=== PATIENT | female | born 1965 | race Caucasian/White ===

== ENCOUNTER 2017-03-20 15:41 | Emergency (ER) | payer MEDICAID ==
[2017-03-20 15:51] VITALS: TEMP 97.7
[2017-03-20] MEDS ORDERED: NS 500 ML IV ONE (17:07)
--- NOTE | 2017-03-20 17:15 | EDPHY ---
H & P Time Seen by Provider: 03/20/17 16:37 HPI/ROS: HPI Fall down stairs. 52-year-old female by private vehicle with her . This patient reports that she fell down her basement stairs on Monday evening. She impacted her left shoulder, left posterior rib area and flank area. She reports that she had worsening pain to all 3 of these areas today was not able to go to work. She reports the pain is worse with movement and deep breathing. She did hit her head but denies any loss of consciousness. She denies any neck pain or mid back pain. No numbness or weakness in her lower extremities. She has not had any nausea or vomiting. Denies headache. No confusion according to her . She denies any extremity pain other than the left shoulder. She is not on antiplatelet or anticoagulant medications. ROS: Constitutional: No fever, no chills. No weakness. Eyes: No discharge. No changes in vision. ENT: No sore throat. No nasal congestion or rhinorrhea. Respiratory: No cough. No shortness of breath. Cardiac: No chest pain, no palpitations. Gastrointestinal: No abdominal pain, no vomiting, no diarrhea. Genitourinary: No hematuria. No dysuria or increased frequency with urination. Musculoskeletal: No back pain. No neck pain. As above. Skin: No rashes. Neurological: No headache. No focal weakness or altered sensation. Past medical history: Asthma, neck surgery, breast reduction surgery. Social history: Here with her . Nonsmoker. Denies alcohol. Physical Exam: General Appearance: Alert, no distress. This patient is responding to questions appropriately and in full sentences. This patient appears well- hydrated and well-nourished. Head: Normocephalic atraumatic. Face: Facial bones are stable on palpation. Eyes: Pupils equal and round and reactive to light, no pallor or injection. No lid erythema or edema. ENT, Mouth: Mucous membranes moist. Dentition is intact. No malocclusion of the jaw. No tongue lacerations or abrasions. Pharynx is clear. The bilateral nasal canals are clear. No septal hematoma. Respiratory: There are no retractions, lungs are clear to auscultation with good air movement bilaterally. Chest wall is stable to AP and lateral palpation. Cardiovascular: Regular rate and rhythm. No murmur. Gastrointestinal: Abdomen is soft with mild to moderate left-sided subcostal tenderness on palpation. Neurological: Motor sensory function is intact. Cranial nerves are normal. Cerebellar function intact. Skin: Warm and dry, no rashes. No lacerations, no abrasions. She has diffuse ecchymosis over the lateral and posterior aspect of the left shoulder. She has ecchymosis noted over the left posterior rib area caudad to the scapular angle and involving the left flank. She has vague tenderness on palpation to this area. There is no crepitus on palpation. No bony step-off or deformity noted on palpation. The left shoulder joint does range without significant pain or impingement. No gross deformity on inspection of the left shoulder. Musculoskeletal: Neck is supple and nontender. The trachea is midline. No midline cervical, thoracic, lumbar or sacral tenderness on palpation. No flank tenderness on palpation. Extremities are symmetrical, full range of motion. All joints in the bilateral upper and bilateral lower extremities range without pain or impingement. No tenderness on palpation of the long bones in the bilateral upper and bilateral lower extremities. Psychiatric: No agitation. No depression. Database: EKG: Imaging: Chest x-ray AP portable; the cardiac mediastinal silhouette is unremarkable. No evidence of infiltrate or pneumothorax. No evidence of rib fracture. No acute cardiopulmonary disease process noted. Interpreted by me. Left shoulder x-ray series; negative for fracture, subluxation, dislocation.Interpreted by me. CT chest abdomen and pelvis with IV contrast: Significant for nondisplaced rib fractures 5 and 6 left-sided lateral and posterior left-sided 7th rib. Abdomen is unremarkable. The spleen and kidneys appear normal. No free fluid. There is an old compression fracture of L1 that was noted on a prior study. Otherwise this study was normal. Results were discussed with staff radiologist Dr. Ulises Leone. Procedures: Emergency department course: Plain films of the chest and left shoulder ordered from triage. IV placed. She was started on IV normal saline with 500 cc to be given over the next hour. Secondary to the extensive ecchymosis involving the left posterior chest wall as well as left flank area and tenderness over the spleen she will be sent for CT imaging. She consents to this. 7:05 p.m., patient re-evaluated. She has been given 2, 0.25 mg doses of IV hydromorphone for pain control. Her pain is controlled at this time. I discussed the results of her CT scans and diagnosis of rib fractures. I discussed admission for pain control. She does not want to be admitted. Plan will be to discharge her to home with prescriptions for Vicodin and stool softeners. Return to emergency department precautions were thoroughly reviewed with her and her . Both of them feel comfortable with this plan. She can easily return to the emergency department if needed. Follow-up was discussed. All of their questions were answered. She was discharged in good condition. Differential Diagnosis: The differential diagnosis on this patient includes but is not limited to left shoulder contusion, rib fractures, renal contusion versus laceration, splenic laceration. Cervical spine injury, traumatic brain injury unlikely. This represents a partial list of diagnoses considered. These considerations are based on history, physical exam, past history, reassessment and diagnostic testing. Smoking Status: Current every day smoker Constitutional: Initial Vital Signs Temperature (C) 36.5 C 03/20/17 15:48 Heart Rate 84 03/20/17 15:48 Respiratory Rate 18 03/20/17 15:48 Blood Pressure 140/93 H 03/20/17 15:48 O2 Sat (%) 94 03/20/17 15:48 O2 Delivery Mode Room Air Allergies/Adverse Reactions: No Known Allergies Allergy (Verified 03/20/17 15:46) Home Medications: Medication Instructions Recorded Albuterol [Proventil Inhaler HFA 1 - 2 puffs IH Q4 #1 mdi 04/13/16 (*)] Buspar (*) 04/13/16 Flexeril 04/13/16 predniSONE 20 mg PO DAILY #5 tablet 04/13/16 traZODone 04/13/16 Docusate Sodium [Colace 100 MG (*)] 100 mg PO TID #20 cap 03/20/17 Hydrocodone/APAP 5/325 [[place] 1 - 2 tab PO Q4-6PRN PRN #20 tab 03/20/17 5/325 (*)] Medical Decision Making - Data Points Medications Given: Discontinued Medications Hydromorphone HCl (Dilaudid) 0.25 mg IVP EDNOW ONE Stop: 03/20/17 18:35 Last Admin: 03/20/17 18:37 Dose: 0.25 mg Sodium Chloride (Ns) 500 mls @ 0 mls/hr IV ONCE ONE; Wide Open PRN Reason: Protocol Stop: 03/20/17 17:08 Last Admin: 03/20/17 17:33 Dose: 500 mls Departure - Departure Disposition: Home, Routine, Self-Care Clinical Impression: Fall down stairs, Chest wall contusion, Contusion of left shoulder, Rib fractures Condition: Good Instructions: Rib Fracture (ED) Additional Instructions: Read and follow provided instructions. Follow-up with your primary care physician in 1-2 days for re-evaluation. Take medication as prescribed. [place]/Percocet dosin-2 every 4-[address] not drive on this medication. Ibuprofen dosin mg every 6 hours with meals for the next 3 days only. Return to the emergency department immediately for worsening or uncontrolled pain with above medications, difficulty breathing, cough or other serious concerns. Referrals: Roslyn Bradford MD [Primary Care Provider] - As per Instructions Stand Alone Forms: Work Limited Duty, Work Excuse Prescriptions: Docusate Sodium [Colace 100 MG (*)] 100 mg PO TID #20 cap Hydrocodone/APAP 5/325 [[place] 5/325 (*)] 1 - 2 tab PO Q4-6PRN PRN #20 tab PRN Reason: Pain, Moderate
[2017-03-20] MEDS ORDERED: IOPAMIDOL (ISOVUE-300) 100 ML BTL ONE (17:42)
[2017-03-20] MEDS ORDERED: HYDROmorphONE/DILAUDID 1 MG/ML SYR IVP ONE (18:34)
[2017-03-20 19:29] VITALS: BP 137/97; PULSE 88; RESP 16; O2SAT 92
== END 2017-03-20 19:30 | disposition home or self-care (01) ==
DX: S22.32XA Fracture of one rib, left side, initial encounter for closed fracture (principal); S40.012A Contusion of left shoulder, initial encounter; F17.200 Nicotine dependence, unspecified, uncomplicated; J45.909 Unspecified asthma, uncomplicated; E86.9 Volume depletion, unspecified; W10.8XXA Fall (on) (from) other stairs and steps, initial encounter
CPT/HCPCS: 82947-QW; 96374; J1170; Q9967

== ENCOUNTER 2017-03-30 06:49 | Emergency (ER) | payer MEDICAID ==
[2017-03-30 06:59] VITALS: O2SAT 95
[2017-03-30] MEDS ORDERED: LORazepam 1 MG TAB PO ONE (07:17)
--- NOTE | 2017-03-30 07:23 | EDPHY ---
H & P Stated Complaint: FALL DOWN STAIRS YEST 4PM, HALLUCINATING ALL NIGHT,FALL 2 WK AGO Time Seen by Provider: 03/30/17 07:09 HPI/ROS: Chief Complaint: Head injury, hallucination HPI: 52-year-old woman states she fell down the stairs yesterday afternoon for p.m.. She states she struck her head and had a positive loss of consciousness. She states these are 3 stairs and fell down about 6 of them outside. Had a similar fall 2 weeks ago. Last night after going to bed she was hallucinating, while in bed she thought she saw someone coming in and out of her closet. She did hear voices once when somebody called out her name. She lives with her fiance who did not observe a unusual people or your usual things at home. Does not have a history of hallucinations in the past. Does not have a headache. Some nausea but no vomiting. She is also feeling very tremulous and shaky in her arms and her legs bilaterally. Denies alcohol consumption for at least a couple of months. Does smoke cigarettes. Denies any other drug use. Takes trazodone for sleep but has never had a similar episode after taking trazodone in the past. No neck pain. No numbness or weakness. ROS: 10 point Review of Systems is negative except as noted in the HPI. PMH: Denies Social History: Positive smoking, denies alcohol, no recreational drug use Family History: non-contributory Physical Exam: Gen: Awake, Alert, No Distress, tremulous HEENT: Mild right parietal scalp tenderness with small hematoma, no lacerations or abrasions. No step-offs. Nose: no rhinorrhea Eyes: PERRLA, EOMI Mouth: Moist mucosa Neck: Supple, no JVD, nontender Chest: nontender, lungs clear to auscultation Heart: S1, S2 normal, no murmur Abd: Soft, non-tender, no guarding Back: no CVA tenderness, no midline tenderness Ext: no edema, non-tender Skin: no rash Neuro: CN II-XII intact, Sensation grossly intact, Strength 5/5 in bilateral upper and lower extremities - Personal History LMP (Females 10-55): Post Menopausal Current Tetanus/Diphtheria Vaccine: Yes - Medical/Surgical History Hx Asthma: Yes Hx Chronic Respiratory Disease: No Hx Diabetes: No Hx Cardiac Disease: No Hx Renal Disease: No Hx Cirrhosis: No Hx Alcoholism: No Hx HIV/AIDS: No Hx Splenectomy or Spleen Trauma: No Other PMH: PMH- ASTHMA, ARTHRITIS, ANXIETY. PSH- NECK/B KNEES, BREAST reduction , FOOT SURG, - Social History Smoking Status: Current every day smoker Constitutional: Initial Vital Signs Temperature (C) 36.5 C 03/30/17 06:55 Heart Rate 108 H 03/30/17 06:55 Respiratory Rate 20 03/30/17 06:55 Blood Pressure 139/99 H 03/30/17 06:55 O2 Sat (%) 95 03/30/17 06:55 O2 Delivery Mode Room Air Allergies/Adverse Reactions: No Known Allergies Allergy (Verified 03/20/17 15:46) Home Medications: Medication Instructions Recorded Albuterol [Proventil Inhaler HFA 1 - 2 puffs IH Q4 #1 mdi 04/13/16 (*)] Buspar (*) 04/13/16 Flexeril 04/13/16 traZODone 04/13/16 Wellbutrin Sr 03/30/17 Medical Decision Making - Diagnostics Imaging Results: Imaging Impressions Head CT 03/30/17 07:17 Impression: Negative. No acute fracture or evidence of acute intracranial injury. The study was performed as an emergency on-call case and discussed by telephone with Dr. Hudson at 7:45 a.m. The final interpretation is concordant with the original communication. Imaging: Discussed imaging studies w/ shift supervisor melting Radiologist ED Course/Re-evaluation: CT scan of the head is negative for acute injury. Patient is feeling improved after mg of Ativan. She has not had any further hallucinations other than last night while in bed. Remainder exam is unremarkable. I do not think that these are head injury related. Her symptoms are consistent with alcohol withdrawal however she is adamantly denying any alcohol use. She could be having some symptoms secondary to her trazodone. She has follow up with [facility]. Will discharge her with instructions to follow up for any concerns. She will return for any worsening symptoms. - Data Points Medications Given: Discontinued Medications Lorazepam (Ativan) 1 mg PO EDNOW ONE Stop: 03/30/17 07:18 Last Admin: 03/30/17 07:36 Dose: 1 mg Departure - Departure Disposition: Home, Routine, Self-Care Clinical Impression: Head injury Condition: Good Instructions: Head Injury (ED) Additional Instructions: Follow up with your doctors at the [facility] in 2-3 days for re- evaluation. Return to the emergency depart for increasing headache, nausea, vomiting, worsening shaking, worsening hallucinations, seizures, or any other concerns. Referrals: [facility] [Other] - As per Instructions
[2017-03-30 08:39] VITALS: BP 121/91; PULSE 96; RESP 18; TEMP 97.9
== END 2017-03-30 08:40 | disposition home or self-care (01) ==
DX: S09.90XA Unspecified injury of head, initial encounter (principal); J45.909 Unspecified asthma, uncomplicated; W10.8XXA Fall (on) (from) other stairs and steps, initial encounter; F17.200 Nicotine dependence, unspecified, uncomplicated

== ENCOUNTER 2017-03-30 13:27 | Emergency (ER) | payer MEDICAID ==
[2017-03-30 13:42] VITALS: RESP 18; TEMP 98.4
[2017-03-30 13:57] LABS: % IMMATURE GRANULYOCYTES 0.5 % (0.0-1.1); ABSOLUTE IMMATURE GRANULOCYTES 0.06 10^3/uL (0.00-0.10); ADD DIFF? NO; ADD MORPH? NO; ADD SCAN? NO; ATYPICAL LYMPHOCYTE FLAG 0 (0-99); FRAGMENT RBC FLAG 0 (0-99); HEMATOCRIT 49.3 % (38.0-47.0); HEMOGLOBIN 17.2 g/dL (12.6-16.3); LEFT SHIFT FLG 0 (0-99); LIPEMIA HEMOLYSIS FLAG 90 (0-99); MEAN CELL HEMOGLOBIN 35.5 pg (27.9-34.1); MEAN CELL HEMOGLOBIN CONCENTR. 34.9 g/dL (32.4-36.7); MEAN CELL VOLUME 101.9 fL (81.5-99.8); MEAN PLATELET VOLUME 10.2 fL (8.7-11.7); PLATELET CLUMPS FLAG 0 (0-99); PLATELET COUNT 243 10^3/uL (150-400); RED BLOOD CELL COUNT 4.84 10^6/uL (4.18-5.33); RED CELL DISTRIBUTION WIDTH 13.1 % (11.5-15.2)
[2017-03-30 14:03] LABS: ANION GAP 19 mEq/L (8-16); CALCIUM 10.8 mg/dL (8.5-10.4); CARBON DIOXIDE 17 mEq/l (22-31); CHLORIDE 101 mEq/L (97-110); ETHANOL SERUM 208 mg/dL (0-10); GLOMERULAR FILTRATION RATE 58; GLUCOSE 85 mg/dL (70-100); POTASSIUM 4.1 mEq/L (3.5-5.2); SODIUM 137 mEq/L (134-144)
[2017-03-30] MEDS ORDERED: LORazepam 2 MG/ML INJ IVP ONE (14:04)
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
[2017-03-30] MEDS ORDERED: CHLORDIAZEPOXIDE 25MG PREPK#6 BTL TAKEHOME ONE (16:40)
[2017-03-30 16:46] VITALS: BP 147/111; PULSE 107; O2SAT 96
--- NOTE | 2017-03-30 16:55 | ASMTCMCOM ---
CM Note CM Note Notes: Case Management: Patient discharged "to the care of a responsible, sober adult" or to the [facility]. Patient confused, unable to identify a designated sober person to discharge with. Staes she does not "want" to go ro the [facility]. [place] [employer] called and will provide a ride/escort to the [facility] Date Signed: 03/30/2017 04:55 PM Electronically Signed By:Carrie Tavarez
== END 2017-03-30 17:26 | disposition home or self-care (01) ==
LOC: EDUNIT#
DX: F10.129 Alcohol abuse with intoxication, unspecified (principal); F17.200 Nicotine dependence, unspecified, uncomplicated; J45.909 Unspecified asthma, uncomplicated
CPT/HCPCS: 80305; G0480; J2060

== ENCOUNTER 2017-06-28 13:33 | Emergency (ER) | payer MEDICAID ==
[2017-06-28] MEDS ORDERED: NS 1,000 ML IV ONE (15:47)
[2017-06-28] MEDS ORDERED: DIAZEPAM 10 MG/2 ML SYR IVP ONE (15:48)
[2017-06-28 16:00] LABS: % IMMATURE GRANULYOCYTES 0.4 % (0.0-1.1); ABSOLUTE IMMATURE GRANULOCYTES 0.03 10^3/uL (0.00-0.10); ADD DIFF? NO; ADD MORPH? NO; ADD SCAN? NO; ATYPICAL LYMPHOCYTE FLAG 0 (0-99); FRAGMENT RBC FLAG 0 (0-99); HEMATOCRIT 48.3 % (38.0-47.0); HEMOGLOBIN 17.4 g/dL (12.6-16.3); LEFT SHIFT FLG 0 (0-99); LIPEMIA HEMOLYSIS FLAG 90 (0-99); MEAN CELL HEMOGLOBIN 34.7 pg (27.9-34.1); MEAN CELL VOLUME 96.2 fL (81.5-99.8); MEAN PLATELET VOLUME 11.7 fL (8.7-11.7); PLATELET CLUMPS FLAG 10 (0-99); PLATELET COUNT 68 10^3/uL (150-400); RED BLOOD CELL COUNT 5.02 10^6/uL (4.18-5.33); RED CELL DISTRIBUTION WIDTH 14.4 % (11.5-15.2)
[2017-06-28 16:02] LABS: ANION GAP 16 mEq/L (8-16); CALCIUM 11.5 mg/dL (8.5-10.4); CARBON DIOXIDE 26 mEq/l (22-31); CHLORIDE 92 mEq/L (97-110); CREATININE 0.8 mg/dL (0.6-1.0); ETHANOL SERUM < 10 mg/dL (0-10); GLOMERULAR FILTRATION RATE > 60; GLUCOSE 115 mg/dL (70-100); POTASSIUM 3.5 mEq/L (3.5-5.2); SODIUM 134 mEq/L (134-144)
--- NOTE | 2017-06-28 16:04 | EDPHY ---
H & P Time Seen by Provider: 06/28/17 15:10 HPI/ROS: HPI Anxiety, shaking. 52-year-old female by ambulance from home. This patient has a history of alcohol abuse. She has been seen in our emergency department in the past for similar complaints. She reports that she drinks wine on a daily basis. She reports to me that her last drink was several days ago now. She comes to the emergency department complaining of generalized malaise, anxiety and tremors. She reports that she has had some depression but she denies suicidal ideation. She reports also that prior to coming to the emergency department she was so anxious and tremulous that she was not able to walk. That is why she called the ambulance. This is similar to her previous visits in late February of this year. She is feeling better at this time. ROS: Constitutional: No fever, no chills. As above. Eyes: No discharge. No changes in vision. ENT: No sore throat. No nasal congestion or rhinorrhea. Respiratory: No cough. No shortness of breath. Cardiac: No chest pain, no palpitations. Gastrointestinal: No abdominal pain, no vomiting, no diarrhea. Genitourinary: No hematuria. No dysuria or increased frequency with urination. Musculoskeletal: No back pain. No neck pain. No myalgias or arthralgias. Skin: No rashes. Neurological: No headache. No focal weakness or altered sensation. As above. Past medical history: Asthma, arthritis, anxiety, alcohol abuse, breast reduction and various orthopedic surgeries. Social history: Denies smoking. . As above. Denies IV drugs or street drugs. Physical Exam: General Appearance: Alert, anxious. This patient is responding to questions appropriately and in full sentences. This patient appears well-hydrated and well-nourished. Eyes: Pupils equal and round no pallor or injection. No lid edema, erythema or injection. Head: Normocephalic atraumatic. Respiratory: There are no retractions, lungs are clear to auscultation with good air movement bilaterally. Cardiovascular: Regular rate and rhythm. No murmur. Gastrointestinal: Abdomen is soft and nontender, no masses, bowel sounds normal. No focal tenderness at McBurney's point. No Chinchilla sign. Neurological: Motor sensory function is grossly intact. Cranial nerves are normal. Gait is normal. Mild resting tremor. Skin: Warm and dry, no rashes. Musculoskeletal: Neck is supple and nontender. No pain on flexion of the neck. No midline cervical, thoracic, lumbar tenderness on palpation. Extremities are symmetrical. All joints range without pain or impingement. Psychiatric: No agitation. No depression. Database: EKG: Imaging: Procedures: Emergency department course: IV was placed. Vital signs reviewed and are normal. She will be given 5 mg of IV Valium for mild withdrawal and anxiety, this will be repeated as needed x1. Her presentation is not consistent with delirium tremens. I do not feel at this time that she needs inpatient treatment for alcohol withdrawal. She is not suicidal. 4:40 p.m., patient re-evaluated. Resting comfortably. Feeling better after Valium as noted above. Laboratory/blood work reviewed with her. Diagnosis of urinary tract infection discussed with her. Her medication allergies reviewed. She was started on Keflex 500 mg in the emergency department for treatment of urinary tract infection. She feels comfortable going home. I feel she is safe for discharge. I discussed detox programs at [facility]. I will give her information to contact [facility]. Return to emergency department precautions reviewed. Follow-up discussed. All of her questions were answered. She was discharged in good condition. Differential Diagnosis: The differential diagnosis on this patient includes but is not limited to anxiety reaction, alcohol withdrawal, urinary tract infection. Suicidal ideation, acute psychosis, delirium tremens unlikely. This represents a partial list of diagnoses considered. These considerations are based on history , physical exam, past history, reassessment and diagnostic testing. Smoking Status: Current every day smoker Constitutional: Initial Vital Signs Temperature (C) 36.7 C 06/28/17 13:42 Heart Rate 88 06/28/17 13:42 Respiratory Rate 18 06/28/17 13:42 Blood Pressure 122/89 H 06/28/17 13:42 O2 Sat (%) 94 06/28/17 13:42 O2 Delivery Mode Room Air Allergies/Adverse Reactions: No Known Allergies Allergy (Verified 06/28/17 13:41) Home Medications: Medication Instructions Recorded Albuterol [Proventil Inhaler HFA 1 - 2 puffs IH Q4 #1 mdi 04/13/16 (*)] Buspar (*) 04/13/16 Flexeril 04/13/16 traZODone 04/13/16 Wellbutrin Sr 03/30/17 Cephalexin [Keflex (*)] 500 mg PO Q6 7 Days cap 06/28/17 Medical Decision Making - Data Points Laboratory Results: Laboratory Results 06/28/17 13:40 06/28/17 13:40 06/28/17 06/28/17 06/28/17 13:40 13:40 13:40 WBC 7.46 10^3/uL 10^3/uL (3.80-9.50) RBC 5.02 10^6/uL 10^6/uL (4.18-5.33) Hgb 17.4 g/dL H g/dL (12.6-16.3) Hct 48.3 % H % (38.0-47.0) MCV 96.2 fL fL (81.5-99.8) MCH 34.7 pg H pg (27.9-34.1) MCHC 36.0 g/dL g/dL (32.4-36.7) RDW 14.4 % % (11.5-15.2) Plt Count 68 10^3/uL L 10^3/uL (150-400) MPV 11.7 fL fL (8.7-11.7) Neut % (Auto) 52.1 % % (39.3-74.2) Lymph % (Auto) 37.7 % % (15.0-45.0) [place] % (Auto) 8.4 % % (4.5-13.0) Eos % (Auto) 0.7 % % (0.6-7.6) Baso % (Auto) 0.7 % % (0.3-1.7) Nucleat RBC Rel Count 0.0 % % (0.0-0.2) Absolute Neuts (auto) 3.89 10^3/uL 10^3/uL (1.70-6.50) Absolute Lymphs (auto) 2.81 10^3/uL 10^3/uL (1.00-3.00) Absolute Monos (auto) 0.63 10^3/uL 10^3/uL (0.30-0.80) Absolute Eos (auto) 0.05 10^3/uL 10^3/uL (0.03-0.40) Absolute Basos (auto) 0.05 10^3/uL 10^3/uL (0.02-0.10) Absolute Nucleated RBC 0.00 10^3/uL 10^3/uL (0-0.01) Immature Gran % 0.4 % % (0.0-1.1) Immature Gran # 0.03 10^3/uL 10^3/uL (0.00-0.10) Sodium 134 mEq/L mEq/L (134-144) Potassium 3.5 mEq/L mEq/L (3.5-5.2) Chloride 92 mEq/L L mEq/L (97-110) Carbon Dioxide 26 mEq/l mEq/l (22-31) Anion Gap 16 mEq/L mEq/L (8-16) BUN 20 mg/dL mg/dL (7-23) Creatinine 0.8 mg/dL mg/dL (0.6-1.0) Estimated GFR > 60 Glucose 115 mg/dL H mg/dL (70-100) Calcium 11.5 mg/dL H mg/dL (8.5-10.4) Phosphorus 3.7 mg/dL mg/dL (2.5-4.5) Urine Color JULIO Urine Appearance HAZY Urine pH 5.0 (5.0-7.5) Ur Specific [place] 1.026 (1.002-1.030) Urine Protein 1+ H (NEGATIVE) Urine Ketones NEGATIVE (NEGATIVE) Urine Blood NEGATIVE (NEGATIVE) Urine Nitrate NEGATIVE (NEGATIVE) Urine Bilirubin NEGATIVE (NEGATIVE) Urine Urobilinogen 2.0 EU H EU (0.2-1.0) Ur Leukocyte Esterase 1+ H (NEGATIVE) Urine RBC 10-15 /hpf H /hpf (0-3) Urine WBC 15-25 /hpf H /hpf (0-3) Ur Epithelial Cells 2+ /lpf H /lpf (NONE-1+) Uric Acid Crystals PRESENT /hpf /hpf (NONE-1+) Hyaline Casts 5-15 /lpf /lpf (0-1) Urine Mucus 4+ /lpf H /lpf (NONE-1+) Urine Glucose NEGATIVE (NEGATIVE) Ethyl Alcohol < 10 mg/dL mg/dL (0-10) Medications Given: Discontinued Medications Diazepam (Valium Injection) 5 mg IVP EDNOW ONE Stop: 06/28/17 15:49 Last Admin: 06/28/17 15:57 Dose: 5 mg Sodium Chloride (Ns) 1,000 mls @ 0 mls/hr IV ONCE ONE; Wide Open PRN Reason: Protocol Stop: 06/28/17 15:48 Last Admin: 06/28/17 15:57 Dose: 1,000 mls Departure - Departure Disposition: Home, Routine, Self-Care Clinical Impression: Anxiety reaction, Alcohol withdrawal, Urinary tract infection Condition: Good Instructions: Alcohol Withdrawal (ED), Anxiety (ED), Urinary Tract Infection in Women (ED) Additional Instructions: Read and follow provided instructions. Follow-up with your primary care physician in 1-2 days for re-evaluation concerning for urinary tract infection and [facility] for re-evaluation and to discuss detox program options. Take your medication only as prescribed. Take antibiotics as prescribed through entire course of treatment. Return to the emergency department for worsening symptoms, fever, back pain, vomiting or other serious concerns. Referrals: NONE *PRIMARY CARE P,. [Primary Care Provider] - As per Instructions [facility] ([place],. [Clinic] - As per Instructions Prescriptions: Cephalexin [Keflex (*)] 500 mg PO Q6 7 Days cap
[2017-06-28 16:11] LABS: COLOR AMBER; LEUKOCYTE ESTERASE,URINE 1+ (NEGATIVE); MUCUS 4+ /lpf (NONE-1+); NITRITE,URINE NEGATIVE (NEGATIVE); WBC,URINE 15-25 /hpf (0-3)
[2017-06-28 16:23] VITALS: RESP 18; O2SAT 94
[2017-06-28 16:57] VITALS: BP 139/94; PULSE 83; TEMP 98.2
== END 2017-06-28 16:57 | disposition home or self-care (01) ==
LOC: EDUNIT#
DX: F41.1 Generalized anxiety disorder (principal); F10.239 Alcohol dependence with withdrawal, unspecified; N39.0 Urinary tract infection, site not specified; J45.909 Unspecified asthma, uncomplicated; F17.200 Nicotine dependence, unspecified, uncomplicated; E86.9 Volume depletion, unspecified
CPT/HCPCS: 96374; G0480

== ENCOUNTER 2017-06-28 17:45 | Emergency (ER) | payer MEDICAID ==
--- NOTE | 2017-06-28 19:12 | EDPHY ---
H & P Time Seen by Provider: 06/28/17 19:02 HPI/ROS: CHIEF COMPLAINT: "I hit my head 6 weeks ago " HISTORY OF PRESENT ILLNESS: 52-year-old female seen emergency department earlier for complaints of acute anxiety. She has a history of alcoholism. States that she hit her head 6 weeks ago and ever since has been feeling "off " . No seizure. No suicidal homicidal ideation. Emergency department earlier patient was discharged however never left the hospital grounds, had spat past few hours in the waiting room and then was found sleeping in the atrium of the hospital where she stated that she hit her head 6 weeks ago. She denies acute complaints of pain or discomfort at this time. Denies seizure. Denies headache. Denies acute head injury. PRIMARY CARE PROVIDER: REVIEW OF SYSTEMS: A ten point review of systems was performed and is negative with the exception of the items mentioned in the HPI PAST MEDICAL/SURGICAL HISTORY: no anticoagulant use, alcoholism SOCIAL HISTORY last drink of alcohol several days ago PHYSICAL EXAM 1) GENERAL: Well-developed, well-nourished, alert and oriented. Appears to be in no acute distress. Answering questions appropriately. Tremulous. GCS 15 2) HEAD: Normocephalic, atraumatic, no hematoma no depression no laceration or abrasion 3) HEENT: Pupils equal, round, reactive to light bilaterally. Negative Horners. Nasopharynx, oropharynx, clear. No deformity or angulation of nose. No septal hematoma. No rhinorrhea. No oral trauma. Ears bilaterally with normal tympanic membranes. No hemotympanum. No fluid or blood in the external auditory canal. No raccoon eyes. No Galvan sign. Teeth are normally aligned with no gross malocclusion, TMJ bilaterally nontender, facial bones nontender including the zygomatic arch, maxilla mandible. 4) NECK: No cervical collar is on. Posterior cervical spine is nontender, no stepoff, no effusion. Full range of motion which does not elicit any midline cervical spine pain, no posterior midline tenderness, no step-off. 5) LUNGS: Clear to auscultation bilaterally, no wheezes, no rhonchi, no retractions. No obvious signs of trauma. No chest wall pain. No flaring, no grunting. Moving symmetrically. No crepitus. 6) HEART: Regular rate and rhythm, 7) ABDOMEN: No guarding, no rebound, no focal tenderness, no peritoneal signs, no signs of trauma, no ecchymosis 8) MUSCULOSKELETAL: Moving all extremities, no focal areas of tenderness, no obvious trauma. 9) BACK: No midline vertebral tenderness, no fluctuance, no step-off, no obvious trauma, no visual or palpable abnormality. 10) SKIN: No laceration. No abrasion 11) NEURO: Awake, alert, and oriented to person, place and time. Answers questions appropriately. There were no obvious focal neurologic abnormalities. No cerebellar dysfunction. Normal steady gait. Upper and lower extremities bilaterally with strength 5 / 5, reflexes 2+. DIFFERENTIAL DIAGNOSIS: [ in no particular include but limited to acute alcohol withdrawal, delirium tremens, suicidal ideation, acute anxiety Smoking Status: Current every day smoker Constitutional: Initial Vital Signs Temperature (C) 36.9 C 06/28/17 18:14 Heart Rate 84 06/28/17 18:14 Respiratory Rate 18 06/28/17 18:14 Blood Pressure 114/85 H 06/28/17 18:14 O2 Sat (%) 94 06/28/17 18:14 O2 Delivery Mode Room Air Allergies/Adverse Reactions: No Known Allergies Allergy (Verified 06/28/17 18:11) Home Medications: Medication Instructions Recorded Albuterol [Proventil Inhaler HFA 1 - 2 puffs IH Q4 #1 mdi 04/13/16 (*)] Buspar (*) 04/13/16 Flexeril 04/13/16 traZODone 04/13/16 Wellbutrin Sr 03/30/17 Cephalexin [Keflex (*)] 500 mg PO Q6 7 Days cap 06/28/17 MDM/Departure - [facility] ED Course/Re-evaluation: 7:10 p.m.: I reviewed this patient's medical records. She denies acute head injury and shows no signs of acute trauma or head trauma. I do not think that diagnostic studies are indicated at this time. I have offered to give her another dose of benzodiazepine which she declines. She does request a taxi ride back to her [facility] house which will be arranged via the charge nurse. She feels comfortable being discharged.Care of patient under supervision of secondary supervising physician Dr Andrea with whom I discussed case . - Depart Disposition: Home, Routine, Self-Care Clinical Impression: Anxiety Condition: Good Instructions: Anxiety (ED) Additional Instructions: Return to the ER if you develop hallucination , seizures, headaches or any other symptoms that concern you Referrals: [facility],. [Clinic] - 1-2 days without fail
[2017-06-28 19:40] VITALS: BP 126/87; PULSE 82; RESP 16; TEMP 98.6; O2SAT 93
== END 2017-06-28 19:39 | disposition home or self-care (01) ==
DX: F41.9 Anxiety disorder, unspecified (principal); F17.200 Nicotine dependence, unspecified, uncomplicated

== ENCOUNTER 2017-07-17 17:00 | Emergency (ER) | payer MEDICAID ==
--- NOTE | 2017-07-17 16:51 | EDPHY ---
H & P Constitutional: Initial Vital Signs Temperature (C) 36.5 C 07/17/17 17:01 Heart Rate 97 07/17/17 17:01 Respiratory Rate 14 07/17/17 17:01 Blood Pressure 151/87 H 07/17/17 17:01 O2 Sat (%) 94 07/17/17 17:01 O2 Delivery Mode Room Air Allergies/Adverse Reactions: No Known Allergies Allergy (Verified 06/28/17 18:11) Home Medications: Medication Instructions Recorded Albuterol [Proventil Inhaler HFA 1 - 2 puffs IH Q4 #1 mdi 04/13/16 (*)] Buspar (*) 04/13/16 Flexeril 04/13/16 traZODone 04/13/16 Wellbutrin Sr 03/30/17 Cephalexin [Keflex (*)] 500 mg PO Q6 7 Days cap 06/28/17 Medical Decision Making ED Course/Re-evaluation: CHIEF COMPLAINT: Alcohol intoxication. HISTORY OF PRESENT ILLNESS: The patient is a 52 y/o female with a history of alcohol abuse who presents with intoxication. EMS reports she was able to walk on scene with some assistance. She denies any complaints currently. She states, "I'm an alcoholic and I have some issues." She admits to drinking 1/2 pint of vodka today and says her parents recently. Patient was found by bystanders at a coffee shop who called EMS. Patient has had multiple ER visits over the last several years for the same complaint. Patient denies any injuries denies loss of consciousness denies any recent trauma. Patient denies co-ingestion. Patient denies suicidal or homicidal behavior. Normal prehospital BGL. REVIEW OF SYSTEMS: A 10 point review of systems was performed and is negative with the exception of the elements mentioned in the history of present illness. PHYSICAL EXAM: General Appearance: Alert, well hydrated, appropriate, and non-toxic appearing. Smells of alcohol. Head: Atraumatic without scalp tenderness or obvious injury Eyes: Pupils equal, round, reactive to light and accommodation, EOMI, no trauma , no injection. Nose: Atraumatic, no rhinorrhea, clear. Throat: Mucus membranes moist. Neck: Supple, nontender. Respiratory: No retractions, no distress, no wheezes, and no accessory muscle use. Lungs are clear to auscultation bilaterally. Cardiovascular: Regular rate and rhythm, no murmurs, rubs, or gallops. Good capillary refill all extremities. Gastrointestinal: Abdomen is soft, nontender, non-distended, no masses, no rebound, no guarding, no peritoneal signs. Musculoskeletal: Normal active ROM of all extremities, atraumatic. Neurological: Alert, appropriate, and interactive. The patient has non-focal cranial nerves, motor, sensory, and cerebellar exam. Skin: No rashes, good turgor, no nodules on palpation. PAST MEDICAL HISTORY: Alcoholism PAST SURGICAL HISTORY: Noncontributory SOCIAL HISTORY: Transient. . DIFFERENTIAL DIAGNOSIS: The differential diagnosis for the patient's symptoms included but was not limited to alcohol intoxication, hypoglycemia, infectious process, electrolyte abnormality, head injury, neurologic process, anemia, cardiac process, and intoxicants. MEDICAL DECISION MAKING: I serially examined this patient since the patient's arrival here in the emergency department. The patient continues to become more and more sober with each examination. I serially questioned the patient and the patient's story given initially has not changed. The patient still denies any trauma, any head injury, and any illicit drug use. At this point, the patient is walking the department freely and is clinically sober. We're discharging the patient to the [facility] in stable condition. Departure - Departure Instructions: Alcohol Intoxication (ED), Abuse of Alcohol (ED) Additional Instructions: Medically clear for detox. Avoid abuse of alcohol. Follow up with [facility] to establish primary care. Referrals: [facility] Detox 24 Hours [Outside] - As per Instructions [facility] [Outside] - As per Instructions Report Scribed for: Rashi Peng Report Scribed by: Arely Farr Date of Report: 07/17/17 Time of Report: 17:06
[2017-07-17 17:07] VITALS: BP 151/87; PULSE 97; RESP 14; TEMP 97.7; O2SAT 94
== END 2017-07-17 18:17 | disposition home or self-care (01) ==
LOC: EDUNIT#
DX: F10.129 Alcohol abuse with intoxication, unspecified (principal)

== ENCOUNTER 2018-01-29 04:08 | Emergency (ER) | payer MEDICAID ==
[2018-01-29] MEDS ORDERED: LORazepam 2 MG/ML INJ IVP ONE (04:10)
[2018-01-29] MEDS ORDERED: chlordiazePOXIDE 25 MG CAP PO ONE (04:10)
[2018-01-29] MEDS ORDERED: NS 1,000 ML IV ONE (04:10)
[2018-01-29] MEDS ORDERED: CHLORDIAZEPOXIDE 25MG PREPK#6 BTL TAKEHOME ONE (04:10)
--- NOTE | 2018-01-29 04:13 | EDPHY ---
H & P Time Seen by Provider: 01/29/18 04:11 HPI/ROS: HPI CHIEF COMPLAINT: Alcohol withdrawal HISTORY OF PRESENT ILLNESS: 52-year-old female, history of alcoholism, she believes her last drink was sometime earlier yesterday, she has been at the [facility] undergoing detox. She did not have Librium there was sent to the emergency room to be treated for alcohol withdrawal. She presents emergency room by EMS this slightly tachycardic at 103 she is tremulous. She is not hallucinating she denies chest pain or shortness of breath. She does complain that she feels like she is going to withdrawal. She typically drinks multiple vodka drinks per day. Past Medical History: Alcoholism Past Surgical History: Recent left rotator cuff surgery Social History: Daily alcohol use, lives locally private residence. Family History: Noncontributory ROS REVIEW OF SYSTEMS: A comprehensive 10 point review of systems is otherwise negative aside from elements mentioned in the history of present illness. Exam Constitutional nontoxic appearing however going through withdrawal triage nursing summary reviewed, vital signs reviewed, awake/alert. Eyes normal conjunctivae and sclera, EOMI, PERRLA. HENT tongue fasciculations on exam, normal inspection, atraumatic, moist mucus membranes, no epistaxis, neck supple/ no meningismus, no raccoon eyes. Respiratory clear to auscultation bilaterally, normal breath sounds, no respiratory distress, no wheezing. Cardiovascular rate normal, regular rhythm, no murmur, no edema, distal pulses normal. Gastrointestinal soft, non-tender, no rebound, no guarding, normal bowel sounds, no distension, no pulsatile mass. Genitourinary no CVA tenderness. Musculoskeletal with arm extension she is tremulous no midline vertebral tenderness, full range of motion, no calf swelling, no tenderness of extremities, no meningismus, good pulses, neurovascularly intact. Skin pink, warm, & dry, no rash, skin atraumatic. Neurologic not hallucinating, nontoxic, awake, alert and oriented x 3, AAOx3, moves all 4 extremities equally, motor intact, sensory intact, CN II-XII intact , normal cerebellar, normal vision, normal speech. Psychiatric normal mood/affect. Heme/Lymph/Immune no lymphadenopathy. Differential Diagnosis: Includes but is not limited to in a particular order alcohol withdrawal, dehydration, anxiety, delirium tremens Medical Decision Making: Plan for this patient IV establishment IV fluid bolus 1 L normal saline, IV Ativan 1 mg for withdrawal and p.o. Librium 50 mg. Re- evaluate. Re-evaluation: 0446: Re-examination this time patient is feeling much better after IV Ativan 1 mg, she is completing a 1 L normal saline IV fluid bolus. On re-evaluation her shaking his resolved and she is feeling much better she in fact was sleeping in the emergency room. No nausea denies any chest pain shortness of breath. Plan will be back to the [facility] with Librium. No evidence of DTs. Source: Patient, EMS - Medical/Surgical History Hx Asthma: Yes Hx Chronic Respiratory Disease: No Hx Diabetes: No Hx Cardiac Disease: No Hx Renal Disease: No Hx Cirrhosis: No Hx Alcoholism: Yes Hx HIV/AIDS: No Hx Splenectomy or Spleen Trauma: No Other PMH: PMH- ASTHMA. PSH- NECK/B KNEES, BREAST reduction - Social History Smoking Status: Current every day smoker Constitutional: Initial Vital Signs Temperature (C) 37.0 C 01/29/18 04:09 Heart Rate 101 H 01/29/18 04:09 Respiratory Rate 18 01/29/18 04:09 Blood Pressure 126/101 H 01/29/18 04:09 O2 Sat (%) 93 01/29/18 04:09 O2 Delivery Mode Room Air Allergies/Adverse Reactions: No Known Allergies Allergy (Verified 06/28/17 18:11) Home Medications: Medication Instructions Recorded Albuterol [Proventil Inhaler HFA 1 - 2 puffs IH Q4 #1 mdi 04/13/16 (*)] Buspar (*) 04/13/16 Flexeril 04/13/16 traZODone 04/13/16 Advair Hfa 115-21 Mcg Inhaler 01/29/18 Ibuprofen 01/29/18 Medical Decision Making - Data Points Medications Given: Discontinued Medications Chlordiazepoxide HCl (Librium) 50 mg PO EDNOW ONE Stop: 01/29/18 04:11 Last Admin: 01/29/18 04:16 Dose: 50 mg Sodium Chloride (Ns) 1,000 mls @ 0 mls/hr IV ONCE ONE PRN Reason: Wide Open Stop: 01/29/18 04:11 Last Admin: 01/29/18 04:18 Dose: 1,000 mls Lorazepam (Ativan Injection) 1 mg IVP EDNOW ONE Stop: 01/29/18 04:11 Last Admin: 01/29/18 04:18 Dose: 1 mg Departure - Departure Disposition: Home, Routine, Self-Care Clinical Impression: Alcohol withdrawal Qualifiers: Complication of substance-induced condition: uncomplicated Qualified Code(s): F10.230 - Alcohol dependence with withdrawal, uncomplicated Condition: Good Instructions: Chlordiazepoxide/Clidinium (By mouth), Alcohol Withdrawal (ED) Referrals: NONE *PRIMARY CARE P,. [Primary Care Provider] - As per Instructions Jaison Allen DO [Doctor of Osteopathy] - As per Instructions
[2018-01-29 05:30] VITALS: BP 131/83
== END 2018-01-29 05:30 | disposition home or self-care (01) ==
LOC: EDUNIT#
DX: F10.230 Alcohol dependence with withdrawal, uncomplicated (principal); J45.909 Unspecified asthma, uncomplicated; F17.200 Nicotine dependence, unspecified, uncomplicated
CPT/HCPCS: 96374; J2060

== ENCOUNTER 2018-04-21 02:48 | Emergency (ER) | payer MEDICAID ==
[2018-04-21] MEDS ORDERED: LORazepam 2 MG/ML INJ ONE (02:59)
[2018-04-21] MEDS ORDERED: IPRATROPIUM/ALBUTEROL 3 ML DEYVIAL ONE (02:59)
[2018-04-21] MEDS ORDERED: methylPREDNISolone SOD SUCC 125 MG/2 ML VIAL ONE (02:59)
[2018-04-21] MEDS ORDERED: LORazepam 2 MG/ML INJ IVP ONE (03:10)
[2018-04-21] MEDS ORDERED: methylPREDNISolone SOD SUCC 125 MG/2 ML VIAL IVP ONE (03:10)
[2018-04-21] MEDS ORDERED: IPRATROPIUM/ALBUTEROL 3 ML DEYVIAL IH ONE (03:10)
[2018-04-21] MEDS ORDERED: NS 1,000 ML IV ONE (03:12)
[2018-04-21] MEDS ORDERED: LORazepam 2 MG/ML INJ IVP PRN (03:24)
[2018-04-21] MEDS ORDERED: LORazepam 1 MG TAB PO PRN (03:24)
[2018-04-21] MEDS ORDERED: chlordiazePOXIDE 25 MG CAP PO ONE (03:34)
--- NOTE | 2018-04-21 03:35 | EDPHY ---
H & P Stated Complaint: sent from [facility]-alcohol withdrawl, asthma Time Seen by Provider: 04/21/18 03:24 HPI/ROS: HPI The patient presents from the [facility] for symptoms of alcohol withdrawal and shortness of breath. The patient's last drink was yesterday morning and she was drinking 1.5 pt of hard alcohol daily. She is feeling somewhat tremulous and anxious. She is not taken any medication for her withdrawals yet. While at the [facility] she developed wheezing and shortness of breath. She has an underlying history of asthma or TRIBAL DELEGATE D. She has been without her Advair and albuterol and she thinks this provoked her symptoms.. REVIEW OF SYSTEMS 10 systems were reviewed and negative with the exception of the elements mentioned in the history of present illness. PMHx: Asthma versus COPD Soc Hx: Alcohol abuse, heavy cigarette smoker until about 3 weeks ago, she has been on the patch PHYSICAL General Appearance: Alert, no distress Eyes: Pupils equal and round no pallor or injection ENT, Mouth: Mucous membranes moist Respiratory: There are no retractions, she is speaking full sentences in breathing comfortably, there are occasional expiratory wheezes Cardiovascular: Regular rate and rhythm Gastrointestinal: Abdomen is soft and non-tender, no masses, bowel sounds normal Neurological: A&O, moves all extremities, fine hand tremor Skin: Warm and dry, no rashes Musculoskeletal: Neck is supple non tender Extremities: symmetrical, full range of motion Psychiatric: Patient is oriented X 3, there is no agitation Source: Patient Exam Limitations: No limitations - Personal History Current Tetanus Diphtheria and Acellular Pertussis (TDAP): Yes - Medical/Surgical History Hx Asthma: Yes Hx Chronic Respiratory Disease: No Hx Diabetes: No Hx Cardiac Disease: No Hx Renal Disease: No Hx Cirrhosis: No Hx Alcoholism: Yes Hx HIV/AIDS: No Hx Splenectomy or Spleen Trauma: No Other PMH: PMH- ASTHMA. PSH- NECK/B KNEES, BREAST reduction - Social History Smoking Status: Current every day smoker Constitutional: Initial Vital Signs Temperature (C) 37 C 04/21/18 02:53 Heart Rate 95 04/21/18 02:53 Respiratory Rate 20 04/21/18 02:53 Blood Pressure 147/100 H 04/21/18 02:53 O2 Sat (%) 94 04/21/18 02:53 O2 Delivery Mode Room Air Allergies/Adverse Reactions: No Known Allergies Allergy (Verified 04/21/18 02:51) Home Medications: Medication Instructions Recorded Albuterol [Proventil Inhaler HFA 1 - 2 puffs IH Q4 #1 mdi 04/13/16 (*)] Buspar (*) 04/13/16 Flexeril 04/13/16 traZODone 04/13/16 Advair Hfa 115-21 Mcg Inhaler 01/29/18 Ibuprofen 01/29/18 Fluticasone/Salmeter 250/50Mcg 1 puffs IH BID #1 disk 04/21/18 [Advair 250/50 (*)] predniSONE 40 mg PO DAILY 4 Days #8 tab 04/21/18 Medical Decision Making Differential Diagnosis: This is a 53-year-old female who presents from the [facility] with both symptoms of alcohol withdrawal and wheezing. On arrival here she is somewhat tachycardic, oxygenation is normal. In the emergency department, she was given Ativan and Librium. She improved after receiving a DuoNeb. I will discharge her with Librium and Advair with albuterol. Differential diagnosis considered includes asthma exacerbation, COPD exacerbation, alcohol withdrawal. - Data Points Medications Given: Discontinued Medications Albuterol/Ipratropium (Duoneb) 3 ml IH EDNOW ONE Stop: 04/21/18 03:11 Last Admin: 04/21/18 03:12 Dose: 3 ml Sodium Chloride (Ns) 1,000 mls @ 0 mls/hr IV ONCE ONE; Wide Open PRN Reason: Protocol Stop: 04/21/18 03:13 Last Admin: 04/21/18 03:14 Dose: 1,000 mls Lorazepam (Ativan Injection) 1 mg IVP EDNOW ONE Stop: 04/21/18 03:11 Last Admin: 04/21/18 03:11 Dose: 1 mg Methylprednisolone Sodium Succinate (Solu-Medrol) 125 mg IVP EDNOW ONE Stop: 04/21/18 03:11 Last Admin: 04/21/18 03:11 Dose: 125 mg Departure - Departure Disposition: Home, Routine, Self-Care Clinical Impression: Exacerbation of asthma, Alcohol withdrawal Condition: Good Instructions: Asthma (ED), Alcohol Withdrawal (ED) Referrals: [facility] [Outside] - As per Instructions [facility] [Outside] - As per Instructions Prescriptions: Fluticasone/Salmeter 250/50Mcg [Advair 250/50 (*)] 1 puffs IH BID #1 disk predniSONE 40 mg PO DAILY 4 Days #8 tab
[2018-04-21] MEDS ORDERED: CHLORDIAZEPOXIDE 25MG PREPK#6 BTL TAKEHOME ONE (03:37)
[2018-04-21] MEDS ORDERED: ALBUTEROL INH PREPACK MDI TAKEHOME ONE (03:37)
[2018-04-21 04:48] VITALS: BP 134/76
== END 2018-04-21 04:48 | disposition home or self-care (01) ==
DX: F10.239 Alcohol dependence with withdrawal, unspecified (principal); J45.901 Unspecified asthma with (acute) exacerbation; E86.9 Volume depletion, unspecified
CPT/HCPCS: 96374; J2060; J2930

== ENCOUNTER 2019-01-27 22:34 | Emergency (ER) | payer MEDICAID | END 2019-01-28 05:41 | disposition home or self-care (01) ==